=== PATIENT | female | born 1940 | race Caucasian/White ===

== ENCOUNTER → 2017-01-01 | Outpatient (CLI) | payer MEDICARE ==
[~2017-01-01] MED LIST: ALBU1.25PR INH; ALEN70TA39 PO; AMLO2.5T PO; CALC-197 PO; LEVO50TA51 PO; LOTRCRE TOP; LOVA20TA PO; METO100T PO; SODI325T PO; VITA20003 PO; Z.0.OXYGEN INH
--- NOTE | 2017-01-07 10:55 | RSPPFT ---
DATE OF PROCEDURE: 01/01/17 COMMENTS: Spirometry with FVC of 1.8 predicted 2.5, FEV1 of 1.5 predicted 1.8, FEV1/FVC ratio 81% predicted 81%. Lung volumes show a decrease with TLC at 2.8 predicted 4.9. DLCO is 19% of predicted. IMPRESSION: On the basis of the above, patient has a restrictive lung defect with decreased DLCO.
== END ==
LOC: HRSP 13:00
PROVIDERS: ATTEND Internal Medicine Pulmonary Disease
DX: J84.10 Pulmonary fibrosis, unspecified (principal)
CPT/HCPCS: 94060; 94620; 94726; 94729